=== PATIENT | male | born 1950 | race Caucasian/White ===

== ENCOUNTER 2022-02-15 22:42 | Emergency (ER) | payer MEDICARE, OTHER ==
[~2022-02-15 22:42] MED LIST: ALBUTEROL2.5 MG/3 M INH; CIPRO HC OTIC S10 ML EARLF; COREG 25MG TAB25 MG PO; COUMADIN5 MG PO; COUMADIN7.5 MG PO; ECOTRIN81 MG PO; FERROUS SULFAT324 MG PO; GLUCOPHAGE 500500 MG PO; IMDUR ER TAB 6060 MG PO; LIPITOR TAB 2020 MG PO; NEURONTIN 300300 MG PO; OMEPRAZOLE20 MG PO; OMNICEF 300 MG300 MG PO; PROVENTIL HFA6.7 GM INH; RANEXA500 MG PO; SPIRIVA RESPIMAT4 GM INH; UROXATRAL 10 MG10 MG PO; VITAMIN C500 MG PO; ZESTRIL40 MG PO
[2022-02-15 23:08] LABS: HEMOGLOBIN 11.8 gm/dl (14.0-17.5); RED BLOOD COUNT 3.57 M/UL (4.20-5.50); WHITE BLOOD COUNT 9.4 K/UL (4.5-11.0)
[2022-02-15 23:39] LABS: BUN/CREATININE RATIO 15 (0-10)
== END 2022-02-16 09:31 | disposition other institution (70) ==
LOC: ER1 22:42
PROVIDERS: Physician Assistant
DX: T82.111A Breakdown (mechanical) of cardiac pulse generator (battery), initial encounter (principal); I11.0 Hypertensive heart disease with heart failure; I50.9 Heart failure, unspecified; I25.10 Atherosclerotic heart disease of native coronary artery without angina pectoris; J44.9 Chronic obstructive pulmonary disease, unspecified; E11.9 Type 2 diabetes mellitus without complications; F17.210 Nicotine dependence, cigarettes, uncomplicated; Z20.822 Contact with and (suspected) exposure to COVID-19
CPT/HCPCS: 71045; 80053; 82550; 82553; 83735; 83880; 84484; 85025; 93005; 99285; U0002

== ENCOUNTER 2022-08-04 16:59 | Emergency (ER) | payer MEDICARE, OTHER ==
[2022-08-04 19:44] LABS: HEMOGLOBIN 13.3 gm/dl (14.0-17.5); RED BLOOD COUNT 3.69 M/UL (4.20-5.50); WHITE BLOOD COUNT 9.2 K/UL (4.5-11.0)
[2022-08-04 20:03] LABS: BUN/CREATININE RATIO 18 (0-10)
== END 2022-08-05 00:56 | disposition home or self-care (01) ==
LOC: ER1 16:59
PROVIDERS: Emergency Medicine
DX: R51.9 Headache, unspecified (principal); G89.29 Other chronic pain; Z51.81 Encounter for therapeutic drug level monitoring
CPT/HCPCS: 70450; 71045; 80053; 82550; 82553; 84484; 85025; 85610; 85730; 93005; 99284